=== PATIENT | female | born 1990 | race African-American/Black ===

== ENCOUNTER 2019-07-05 10:01 | Day surgery (SDC) | payer MEDICAID ==
[~2019-07-05] VITALS: Ht 167.6 cm; Wt 99.8 kg
--- NOTE | ~2019-07-05 | OP ---
PATIENT NAME: TAMICA WILLIAMSON MEDICAL RECORD: [id number] :86 LOCATION:[facility] ADMISSION DATE: SURGEON: JOSÉ MANUEL DELGADILLO MD DATE OF OPERATION: 07/05/2019 PREOPERATIVE DIAGNOSIS: Left neck mass. POSTOPERATIVE DIAGNOSIS: Left neck mass. PROCEDURE: Excision of left neck mass. SURGEON: José Manuel Delgadillo MD ANESTHESIA: General. SPECIMENS: Left cystic neck mass, 3 cm. DRAINS: None. COMPLICATIONS: None. DISPOSITION: Recovery stable. PROCEDURE NOTE: She was brought to the operating room and placed in supine position, sedated and intubated by anesthesia. Head was turned to the right. She was prepped and draped in the usual sterile fashion exposing the left side of the mouth and the left eye. She has more of a parotidectomy incision. The area that around the earlobe and the mass was injected with 1 mL of 1% lidocaine with 1:100,000 epinephrine. Incision was made in front of the earlobe and then back behind the earlobe along a portion of the incision with before parotidectomy. This was taken down to the cystic mass then the flap was dissected over the mass anteriorly and then down back up on the earlobe with retraction. Sharp dissection with a 15 blade and then with scissors. This was slowly freed up anteriorly and then posteriorly. Actually, the mass was between the posterior parotid fascia and the mastoid and up to the inferior ear canal. It appeared to be attached to the skin of the anterior earlobe just below the tragus. There was no other tract or duct attached to this and followed all the way up to the skin. We went up to the skin and dissected that out, taken this skin, making a small buttonhole their just to excise the portion where it was attached to the skin. This was excised completely intact. The wound was then irrigated with saline carefully inspected. Bipolar cautery was used to stop a couple of areas next to the skin just to make sure it was completely dry. She had some apparent acne scarring and changes consistent with possibility she may develop a keloid so I closed with a single Vicryl to approximate the wound and then 6-0 Prolene to close the skin. She was awakened and transported to recovery in good condition. No complications. TRANSINT:[id number] Voice Confirmation ID: [id number] DOCUMENT ID: [id number] OPERATIVE REPORT [id number] WLILIAMSON,JOSÉ MANUEL BEEBE MD CC: [id number] DICTATION DATE: 07/05/19 1352 ACCOUNT SUPPORT ANALYST: 07/05/192122 [facility] 07/05/19 [id number] [place] [address]
--- NOTE | ~2019-07-05 | HP ---
PATIENT: TAMICA WILLIAMSON MEDICAL RECORD: [id number] ACCOUNT: [id number] LOCATION:[facility] : 86 ADMISSION DATE: 07/05/19 PCP: HISTORY AND PHYSICAL EXAMINATION HISTORY OF PRESENT ILLNESS: Tamica is a 29-year-old. She has a left neck mass below her earlobe. It has been infected with what she describes as huge swelling and pain 2 or 3 times now. She had a CT, which showed a cystic mass, possibly a first branchial cleft cyst or a parotid cyst. PAST MEDICAL HISTORY: Includes hypertension. MEDICATIONS: Include levothyroxine, lisinopril, pantoprazole, tramadol, Lexapro, Atarax, Carafate. ALLERGIES: No known drug allergies. PHYSICAL EXAMINATION: GENERAL: She is healthy-appearing. FACE: Normal, symmetric, no lesions. EYES: Sclerae and conjunctivae are normal. EARS: Canals and TMs normal. NOSE: No mass, polyps or drainage. ORAL CAVITY AND OROPHARYNX: No trismus. Tongue protrudes in the midline. Pharynx is normal and symmetric. NECK: She has a cystic mass pushing the earlobe laterally up under the inferior portion of the external auditory canal and posterior parotid is soft and fluid-filled. CHEST: Clear. CARDIOVASCULAR: Regular rate and rhythm, no murmur. EXTREMITIES: Normal. IMPRESSION: Left upper neck mass, cystic, possible parotid, versus a branchial cleft cyst. PLAN: Excision of left neck mass, possible parotidectomy. TRANSINT:[id number] Voice Confirmation ID: [id number] DOCUMENT ID: [id number] TULIO ATKINS MD CC: [id number] DICTATION DATE: 07/01/19 1335 INSPECTOR COLD WORKING: 07/01/19 1427 [facility] [address] [place] [address]
[2019-07-05 10:44] LABS: HEMATOCRIT 36.5 % (36.0-48.0); HEMOGLOBIN 11.9 g/dL (12-16); MCHC 32.6 g/dL (31.0-37.0); MEAN PLATELET VOLUME 9.1 fL (7.4-10.4); RBC 4.1 10x6/uL (4.00-5.40); RDW 16.2 % (11.5-14.5); WBC 7.9 10x3/uL (4.8-10.8)
[2019-07-05] MEDS ORDERED: LISINOPRIL10 MG PO (11:04)
[2019-07-05 11:10] VITALS: BP 125/76; Ht 167.6 cm; Wt 99.8 kg
[2019-07-05 11:36] LABS: HCG URINE NEGATIVE (NEGATIVE)
[2019-07-05] MEDS ORDERED: LEXAPRO10 MG PO (12:16)
--- NOTE | 2019-07-05 15:19 | NUR ---
DC INSTRUCTIONS GIVEN TO PT. STATES UNDERSTANDING. DC'D IV CATH FULLY INTACT.
--- NOTE | 2019-07-05 15:45 | NUR ---
PT LEFT UNIT VIA WC AT 1537
== END 2019-07-05 15:36 | disposition home or self-care (01) ==
LOC: D.OPS 10:01 → D.PAN 11:30 → D.OPS 11:45 → D.PAN 12:15 → D.OPS 15:36
PROVIDERS: Anesthesiology; ATTEND Otolaryngology
DX: R22.1 Localized swelling, mass and lump, neck (principal)